=== PATIENT | female | born 1955 | race African-American/Black ===

== ENCOUNTER 2021-12-03 18:45 | Inpatient (IN) | payer OTHER ==
[~2021-12-03] VITALS: Ht 165.1 cm; Wt 57.2 kg
--- NOTE | 2021-12-03 19:00 | NUR ---
pt bib ra from home for dizziness n/v
--- NOTE | 2021-12-03 19:18 | NUR ---
DR. Blankenship at bedside for MSE. Dr. Blankenship request for code stroke on the pt. code stroke was called. iv to right ac was started by Aidan ROMERO, lab personnel in room, location director in room. mailhouse operator in room for code stroke.
--- NOTE | 2021-12-03 19:28 | NUR ---
pt taken to cat scan, accompained by drew and RN myself. pt taken via gourney and placed on the front desk monitor.
[2021-12-03] MEDS ORDERED: IV NORMAL SALINE 500 ML BAG IV ONE (19:30)
[2021-12-03] MEDS ORDERED: ONDANSETRON 4 MG/2 ML VIAL IV ONE (19:30)
--- NOTE | 2021-12-03 19:37 | NUR ---
pt is back in the ER room 5. pt is able to stick her tongue out midline no deviation, equal bilateral hand aquatics director, pt is able to extend both arms out straight and maintian the position. pt is able to elevate both legs and maintain positon. pt has equal sensation to both arms, legs and face. pupils are equal in reaction.
--- NOTE | 2021-12-03 19:52 | NUR ---
Dr. Jaun Villar from [facility] via zoom camera video conference performed assessment of the pt along with my assistance during the exam. this exam concluded at 2006 hours. after the conclusion of the exam the doctor feels the pt is not a candidate for tpa adminstration. This doctor then called Dr. Blankenship to relay this information. The Neurologist Dr. Jaun Villar recommends the pt to have an MRI.
[2021-12-03] MEDS ORDERED: AMLO2.5T4 PO (20:02)
[2021-12-03] MEDS ORDERED: ONDANSETRON 4 MG/2 ML VIAL ONE (20:23)
[2021-12-03] MEDS ORDERED: ASPIRIN 81 MG TAB.CHEW ONE (20:38)
[2021-12-03] MEDS ORDERED: ASPIRIN 81 MG TAB.CHEW PO ONE (20:45)
[2021-12-03 20:56] LABS: HEMATOCRIT 37.1 % (31.2-41.9); MEAN CORPUSCULAR HEMOGLOBIN 24.5 uug (24.7-32.8); MEAN CORPUSCULAR VOLUME 78.1 fL (75.5-95.3); PLATELET COUNT (AUTO) 228 K/uL (179-408)
--- NOTE | 2021-12-03 20:58 | NUR ---
pt currently does not c/o any pain or nausea.
--- NOTE | 2021-12-03 21:20 | NUR ---
Noelle from [facility] called to receive an update and vitals on the pt. Dr. Blankenship has also spoken to her as well.
[2021-12-03 21:23] LABS: ALANINE AMINOTRANSFERASE 24 U/L (14-59); ALKALINE PHOSPHATASE 116 U/L (50-136); ASPARTATE AMINOTRANSFERASE 17 U/L (15-37); BILIRUBIN,DIRECT 0.1 mg/dL (0.0-0.2); BILIRUBIN,TOTAL 0.3 mg/dL (0.2-1.0); CARBON DIOXIDE 28 mmol/L (21-32); CHLORIDE 107 mmol/L (98-107); CREATININE 1.3 mg/dL (0.6-1.3); GLUCOSE 135 mg/dL (74-106); POTASSIUM 3.9 mmol/L (3.5-5.1); TOTAL PROTEIN, SERUM 7.7 g/dL (6.4-8.2); UREA NITROGEN, BLOOD 22 mg/dL (7-18)
--- NOTE | 2021-12-03 21:47 | NUR ---
Noelle from [facility] called back and said they cannot accept the pt they have no beds available. This was relayed to the ER [facility] [employer] and to Dr. Blankenship [facility] was called for admission Lenny Ferrera is licensing registration examiner for admission.
[2021-12-03] MEDS ORDERED: ATOR40TA PO (21:53)
[2021-12-03] MEDS ORDERED: TIOT18CA3 IH (21:53)
[2021-12-03] MEDS ORDERED: DULO30CA2 PO (21:53)
[2021-12-03] MEDS ORDERED: HYDR-501 PO (21:53)
[2021-12-03] MEDS ORDERED: GABA-532 PO (21:53)
[2021-12-03] MEDS ORDERED: MIRT-93 PO (21:53)
[2021-12-03] MEDS ORDERED: DULO60CA45 PO (21:53)
[2021-12-03] MEDS ORDERED: AMLO10TA59 PO (21:53)
--- NOTE | 2021-12-03 22:18 | NUR ---
Lenny Ferrera called back epic panel doctor and has spoken to Dr. Blankenship.
[2021-12-03] MEDS ORDERED: ACETAMINOPHEN 325 MG TABLET PO PRN (23:30)
[2021-12-03] MEDS ORDERED: ONDANSETRON 4 MG/2 ML VIAL IV PRN (23:30)
[2021-12-03] MEDS ORDERED: MAGNESIUM HYDROXIDE 30 ML LIQUID UDC PO PRN (23:30)
--- NOTE | 2021-12-03 23:48 | NUR ---
warehouse and receiving supervisor is made aware that the pt is waiting for a bed, I would be told if one is available.
--- NOTE | 2021-12-04 02:10 | NUR ---
Admitted a 66 years old female with Dx R/O CVA. Patient AAOx4. In no apparent distress. Able to ambulate with 4 wheel walker. NIH-0. Denies any SOB. Complain of mild neck pain stated it was stiff since yesterday but stiffness is tolerable at this time. NSR on tele with HR of 77/min. IV site on right AC intact and patent. Routine admission care done. Plan of care initiated. Safety measure initiated and call light within reached. Continue to monitor.
--- NOTE | 2021-12-04 02:14 | NUR ---
pt transported to room 301a via [facility] with all belongings, NICK Kaye at bedside to receive the pt.
[2021-12-04 02:20] VITALS: BP 110/69
[2021-12-04] MEDS: ENOXAPARIN SODIUM 40 MG/0.4 ML DISP.SYRIN SQ SCH ×2 (02:41→20:13)
[2021-12-04 04:00] VITALS: BP 115/60
[2021-12-04] MEDS: PANTOPRAZOLE SODIUM 40 MG TABLET.DR PO SCH (06:02)
[2021-12-04 06:52] LABS: HEMATOCRIT 33.3 % (31.2-41.9); MEAN CORPUSCULAR HEMOGLOBIN 24.4 uug (24.7-32.8); MEAN CORPUSCULAR VOLUME 77.9 fL (75.5-95.3); PLATELET COUNT (AUTO) 228 K/uL (179-408)
[2021-12-04 07:10] LABS: POTASSIUM 3.9 mmol/L (3.5-5.1)
[2021-12-04 07:13] LABS: THYROID STIMULATING HORMONE 0.31 mIU/mL (0.358-3.740)
--- NOTE | 2021-12-04 07:30 | NUR ---
Sleeping, appears comfortable.
[2021-12-04 07:48] VITALS: BP 124/78
[2021-12-04 08:17] LABS: *BILIRUBIN,URIN NEGATIVE (NEGATIVE); *BLOOD, URINE NEGATIVE (NEGATIVE); *CLARITY,URINE CLEAR (CLEAR); *COLOR,URINE YELLOW (YELLOW); *KETONES,URINE NEGATIVE (NEGATIVE); LEUKOCYTE ESTERASE ,URINE NEGATIVE (NEGATIVE); NITRITE, URINE NEGATIVE (NEGATIVE); UGLUCOSE NEGATIVE (NEGATIVE)
[2021-12-04 08:35] LABS: *AMPHETAMINE, URINE POSITIVE (NEGATIVE); *CANNABINOID, URINE POSITIVE (NEGATIVE); *COCCAINE, URINE NEGATIVE (NEGATIVE); *OPIATE, URINE NEGATIVE (NEGATIVE); *PHENCYCLIDINE SCREEN,URINE NEGATIVE (NEGATIVE)
[2021-12-04] MEDS: ASPIRIN EC 81 MG TABLET.DR PO SCH (08:58)
--- NOTE | 2021-12-04 09:23 | NUR ---
TEXT DR. SANDHU FOR MRI APPROVAL.
--- NOTE | 2021-12-04 09:32 | NUR ---
OH HOLD FOR NOW PER DR. SANDHU, HE WILL LET US KNOW
[2021-12-04 11:19] VITALS: BP 122/83
--- NOTE | 2021-12-04 14:01 | NUR ---
to [facility] for MRI/MRA head/neck via gurney/ambulance
--- NOTE | 2021-12-04 14:41 | NUR ---
Social work consult was requested after patient was admitted for a stroke. Patient is 66-year-old female admitted to the hospital for an Ischemic Stroke. Upon social service agency director assessment, patient is alert and oriented X4. Patient presents with euthymic mood and full range of affect. Patient presents with good judgement and insight. Patient lives alone in an apartment at [address] [place] [address] [address] Patient does not have home health services. SW explored patients support system. Patients primary blocker and cutter contact lens is her friend, Candice Hunt ([phone]) and they have a good relationship. Patient is currently retired. SW explored history of substance abuse. Patient states she has a history of alcohol abuse and is currently sober. The toxicology report is negative. SW explored history of psychiatric diagnosis. Patient states she has a history of depression. Patient states that [place] [address] ([phone]), but is not currently. Patient stated she is going to talk to a therapist at [facility] when she gets discharged. SW completed a Patient Health Questionnaire with the patient, and she scored a 4. Patient received a 4 on the PHQ9 because she stated she has trouble falling asleep nearly every day and scored a 3 on that question and she stated had been feeling tired several days in the last 2 weeks, so she scored a 1 in that question. Patient denies suicidal or homicidal ideation. Patient has a walker and commode at home and is not currently driving. SW explored patients discharge plan. Patient states her friend Candice ([phone]) will meet her at the hospital and they will take the bus together.
[2021-12-04 15:51] VITALS: BP 106/79
--- NOTE | 2021-12-04 16:00 | NUR ---
Back from [facility], MRI/MRA brain neck done
--- NOTE | 2021-12-04 18:21 | NUR ---
With fair appetite. Denies dizziness, chest pain. Room air, not in distress
--- NOTE | 2021-12-04 19:42 | NUR ---
Received patient lying in bed. AAOX4. In no apparent distress. Denies any pain or SOB. IV site on right AC intact and patent. NSR on tele with HR of 74/min. Denies any vertigo, N/V. Needs assessed and attended to. Safety measure initiated and call light within reached.
[2021-12-04 20:00] VITALS: BP 115/90
[2021-12-04] MEDS ORDERED: ATORVASTATIN 40 MG TABLET PO SCH (21:00)
--- NOTE | 2021-12-04 22:28 | NUR ---
Dr Jorgensen with order to discontinue Lovenox. Order noted and carried out. Addendum: 12/05/21 at 0609 by PER VINCENT RN wrong patient
[2021-12-05] VITALS: BP 135/87
[2021-12-05 04:00] VITALS: BP 138/95
[2021-12-05] MEDS: PANTOPRAZOLE SODIUM 40 MG TABLET.DR PO SCH (06:03)
--- NOTE | 2021-12-05 06:10 | NUR ---
Patient slept well through out the night. Denies any pain or SOB. NSR on tele with HR of 72/min. IV on left AC remains intact and patent. Needs attended to and met.
[2021-12-05] MEDS: ASPIRIN EC 81 MG TABLET.DR PO SCH (08:26)
[2021-12-05 10:58] VITALS: BP 124/89
[2021-12-05] MEDS ORDERED: ASPI81TA31 PO (13:44)
--- NOTE | 2021-12-05 14:37 | NUR ---
Patient discharged from unit. IV site removed. ID elidia removed.
== END 2021-12-05 14:20 | disposition home or self-care (01) | DRG 111 ==
LOC: ER 18:45 → TELE3 21:51
PROVIDERS: ADMIT Nurse Practitioner Acute Care; ATTEND Nurse Practitioner Acute Care
DX: H81.10 Benign paroxysmal vertigo, unspecified ear (principal); E78.5 Hyperlipidemia, unspecified; F17.210 Nicotine dependence, cigarettes, uncomplicated; I10 Essential (primary) hypertension; Z71.6 Tobacco abuse counseling; Z96.641 Presence of right artificial hip joint; Z20.822 Contact with and (suspected) exposure to COVID-19
CPT/HCPCS: 36415; 70030-TC; 70450; 70551; 71045; 83735; 84443; 84484; 85025; 85730; 93005; 93307; 97161; A4663; G0378; J1650; J2405; J7040